=== PATIENT | male | born 1945 | race Caucasian/White ===

== ENCOUNTER 2017-08-14 06:19 | Day surgery (SDC) | payer MEDICARE ==
[~2017-08-14 06:19] MED LIST: ACETAMINOPHEN 1,000 MG/100 ML BTL IV ONE; CLINDAMYCIN 600MG/50ML PREMIX 600 MG/50 ML BAG IVPB ONE
[2017-08-14] MEDS ORDERED: HYDROCODONE/APAP 5/325MG TABLET PO ONE (06:20)
[2017-08-14] MEDS ORDERED: DEXAMETHASONE 4 MG/ML 1ML VIAL IVP ONE (06:20)
[2017-08-14] MEDS ORDERED: LIDOCAINE 2% MDV (20MG/ML) 20ML VIAL IV ONE (06:20)
[2017-08-14] MEDS ORDERED: KETOROLAC 30 MG/ML VIAL IVP ONE (06:20)
[2017-08-14] MEDS ORDERED: PROPOFOL 10 MG/ML VIAL IV ONE (06:20)
[2017-08-14] MEDS ORDERED: *PACU ONLY* KETAMINE HCL 10 MG/ML (20ML) VIAL IV ONE (06:20)
[2017-08-14] MEDS ORDERED: MIDAZOLAM HCL 2MG/2ML VIAL IV ONE (06:20)
[2017-08-14] MEDS ORDERED: FENTANYL PF 100MCG/2ML VIAL IV ONE (06:20)
[2017-08-14] MEDS ORDERED: ROPIVACAINE HCL (NAROPIN) /PF 5MG/ML 20ML VIAL IV ONE (06:20)
[2017-08-14] MEDS ORDERED: BUPIVACAINE 0.25% W/EPI MPF 30ML VIAL IVP ONE (06:20)
[2017-08-14] MEDS ORDERED: SEVOFLURANE 250 ML INH ONE (06:20)
--- NOTE | 2017-08-15 11:20 | Operative Note ---
DATE OF SURGERY: 08/14/2017 Surgeon: Shyam De La Vega DO PREOPERATIVE DIAGNOSIS: Reducible left inguinal hernia. POSTOPERATIVE DIAGNOSIS: Pantaloon hernia. OPERATION: Open left inguinal herniorrhaphy with mesh. Indication: The patient is a 71-year-old male who presented with pain and bulging in his left inguinal region. He had a reducible hernia on exam. We did discuss repair. Risks, benefits, and alternatives were discussed. Risks include but are not limited to bleeding, infection, acute or chronic pain, recurrence. He understood this fully. PROCEDURE: Thereafter, consent was signed and questions answered. The patient was taken to the operating room and placed in a supine position. General anesthesia was administered per the department of anesthesia. The patient's left inguinal region was shaved of hair and prepped and draped in the usual fashion. He had undergone a prior left inguinal block per the department of anesthesia. At this time, adequate timeout was performed. He did receive preoperative antibiotics as well as DVT prophylaxis. An oblique incision was made. This was carried down through Isaías layer to the aponeurosis of the external oblique. This was cleaned off. A darinel was made with a scalpel blade and enlarged through the superficial inguinal ring with a Metzenbaum scissors. Care was taken not to injure the underlying inguinal nerve or spermatic cord. At this time, superior and inferior flaps were developed and a Millicent was placed on the spermatic cord. This was dissected free from underlying transversalis fascia and retracted laterally. A [place] drain. The floor was inspected. The patient did have a direct hernia noted. Cremasteric fibers were taken down. There was an indirect hernia sac as well as lipoma. High ligation of the lipoma was done. The hernia sac was then opened. It was a sliding hernia containing some pericolonic fat. This was reduced and a high ligation was done. At this time, the neck of the direct sac was scored. A large plug was placed on the floor. At this time, the floor was then imbricated. A left-sided ProGrip mesh was obtained. This was placed on the floor of the inguinal canal with excellent overlap of the pubic tubercle. Sutures went at the level of the pubic tubercle, the second portion of the inguinal ligament, and internal oblique aponeurosis. The lateral aspect of the lateral triangle was protected with the lateral aspect of the mesh. At this time, aponeurosis was closed over the cord with 2-0 Vicryl. Isaías layer was closed with 3-0 Vicryl and skin was closed with a 4-0 Vicryl. Taken to the recovery room in satisfactory condition. FINDINGS AT THE TIME OF SURGERY: Pantaloon hernia repaired as above. CC: MD AZALEA Bhandari
== END 2017-08-14 10:10 | disposition home or self-care (01) ==
LOC: SUR 06:19
PROVIDERS: ATTEND Surgery
DX: K40.90 Unilateral inguinal hernia, without obstruction or gangrene, not specified as recurrent (principal); I10 Essential (primary) hypertension
CPT/HCPCS: 49525; 00830; J1885; J3010; J2795